=== PATIENT | female | born 1980 | race Caucasian/White ===

== ENCOUNTER 2017-12-22 10:49 | Observation (INO) | payer MEDICAID ==
--- NOTE | 2017-12-22 11:34 | ED ---
Abdominal Pain/Female - HPI Summary HPI Summary: This is scribe Issa Attebery documenting for attending Babak Kendrick MD. Pt is a 37 y/o F c/o abd pain located in the RLQ onset ~2 days ago. Pain is described as sharp/stabbing and is rated a 7/10, per triage. Assoc. Sx: Abd pain , dysuria, nausea, vomiting. Denies: fever. She reports that the pain is worsened by walking and when she is sitting up the pain spreads up into her epigastric region. LNMP: ~1 week ago. PSHx: Reviewed and N/C. I, Dr. Kendrick, personally performed the services described in this documentation as scribed in my presence and it is both accurate and complete. - History of Current Complaint Chief Complaint: EDAbdPain Stated Complaint: ABD PAIN Time Seen by Provider: 12/22/17 11:29 Hx Obtained From: Patient Onset/Duration: Gradual Onset, Lasting Days, Still Present Timing: Constant Severity Currently: Moderate Pain Intensity: 7 Pain Scale Used: 0-10 Numeric Location: Discrete At: RLQ Character: Sharp Aggravating Factor(s): Movement Associated Signs and Symptoms: Positive: Nausea, Vomiting. Negative: Fever Allergies/Adverse Reactions: Allergies Allergy/AdvReac Type Severity Reaction Status Date / Time quinoa Allergy GI Upset Uncoded 12/22/17 11:08 PMH/Surg Hx/FS Hx/Imm Hx Endocrine/Hematology History: Denies: Hx Diabetes Cardiovascular History: Denies: Hx Coronary Artery Disease, Hx Hypertension Infectious Disease History: No Infectious Disease History: Denies: Traveled Outside the [place] in Last 30 Days - Family History Known Family History: Negative: Cardiac Disease, Hypertension, Diabetes - Social History Occupation: Unemployed Lives: With Family Alcohol Use: Occasionally Hx Substance Use: No Substance Use Type: Reports: None Hx Tobacco Use: No Smoking Status (MU): Never Smoked Tobacco Review of Systems Negative: Fever Positive: Abdominal Pain, Vomiting, Nausea Positive: dysuria All Other Systems Reviewed And Are Negative: Yes Physical Exam - Summary Physical Exam Summary: Appearance: Well appearing, no pain distress Skin: warm, dry, reflects adequate perfusion Head/face: normal Eyes: EOMI, NETO ENT: normal Neck: supple, non-tender Respiratory: CTA, breath sounds present Cardiovascular: RRR, pulses symmetrical Abdomen: Moderate R pelvis tenderness, HATL nml. Bowel Sounds: present Musculoskeletal: normal, strength/ROM intact Neuro: normal, sensory motor intact, A&Ox3 Triage Information Reviewed: Yes Vital Signs On Initial Exam: Initial Vitals Temp Pulse Resp BP Pulse Ox 98.2 F 91 16 119/64 99 12/22/17 11:09 12/22/17 11:09 12/22/17 11:09 12/22/17 11:09 12/22/17 11:09 Vital Signs Reviewed: Yes Diagnostics - Vital Signs Vital Signs Temp Pulse Resp BP Pulse Ox 12/22/17 11:09 98.2 F 91 16 119/64 99 - Laboratory Result Diagrams: 12/22/17 11:45 12/22/17 11:45 Lab Statement: Any lab studies that have been ordered have been reviewed, and results considered in the medical decision making process. - Ultrasound No standard instances Ultrasound Interpretation: Positive (See Comments) - IMPRESSION: FINDINGS CONSISTENT WITH ACUTE APPENDICITIS. THERE IS NO LOCULATED FLUID COLLECTION TO SUGGEST ABSCESS. Ultrasound Interpretation Completed By: Radiologist - Report has been reviewed by provider and radiologist. Abdominal Pain Fem Course/Dx - Course Course Of Treatment: Patient with right pelvic/right lower quadrant is comfort and elevated WBC. Her appendix is grossly dilated on ultrasound consistent with acute appendicitis. IV antibiotics were given in the surgeon was contacted. She will take the patient to the operating room. - Diagnoses Differential Diagnosis: Positive: Appendicitis, Ovarian Cyst, , Renal Colic, Urinary Tract Infection Provider Diagnoses: Acute appendicitis - Provider Notifications Discussed Care Of Patient With: Kavya Perez Time Discussed With Above Provider: 13:15 Instructed by Provider To: Other - Provider discussed care of pt and she will be admitted for surgery. Discharge - Sign-Out/Discharge Documenting (check all that apply): Patient Departure - Discharge Plan Condition: Fair Disposition: ADMITTED TO [facility] Referrals: No Primary Care Phys,NOPCP [Primary Care Provider] - - Billing Disposition and Condition Condition: FAIR Disposition: Admitted to [facility]
[2017-12-22] MEDS ORDERED: Ondansetron INJ* 2 MG/ML VIAL IV ONE (11:58)
[2017-12-22] MEDS ORDERED: Ketorolac INJ* 30 MG/ML 1 ML VIAL IV PUSH ONE (11:58)
[2017-12-22 11:59] LABS: ABS Basophils 0 10^3/ul (0-0.2); ABS Eosinophils 0 10^3/ul (0-0.6); ABS Lymphocytes 1.2 10^3/ul (1.0-4.8); ABS Monocytes 0.9 10^3/ul (0-0.8); ABS Neutrophils 13.7 10^3/ul (1.5-7.7); ABS Nucleated RBC 0 10^3/ul; Eosinophil % 0 % (0-6); Hematocrit 37 % (35-47); Hemoglobin 12.3 g/dl (12.0-16.0); Lymphocyte % 7.9 % (25-47); Mean Corpuscular HGB Conc 34 g/dl (31-36); Mean Corpuscular Hemoglobin 31 pg (27-31); Mean Corpuscular Volume 91 fL (80-97); Mean Platelet Volume 7.7 um3 (7.4-10.4); Nucleated Red Blood Cells % 0; Platelet Count 236 10^3/ul (150-450); Red Blood Count 4.01 10^6/ul (4.00-5.40); Red Cell Distribution Width 14 % (10.5-15); White Blood Count 15.8 10^3/ul (3.5-10.8)
[2017-12-22 12:15] LABS: EGFR Non-African American 98.5 (>60)
[2017-12-22 12:25] LABS: Urine Appearance Clear; Urine Blood 2+ (Negative); Urine Color Yellow; Urine Ketones 1+ (Negative); Urine Protein Negative (Negative); Urine Red Blood Cell 2+(6-10/hpf) (Absent); Urine Specific Gravity 1.009 (1.010-1.030); Urine Urobilinogen Negative (Negative); Urine White Blood Cell Absent (Absent)
[2017-12-22] MEDS ORDERED: Piperacillin/Tazobac ADVAN(*) 3.375 GM in NS 0.9% 100 ML* 100 ML IVPB ONE (12:58)
--- NOTE | 2017-12-22 13:04 | RAD ---
HISTORY: R pelvic/RLQ pain COMPARISONS: None TECHNIQUE: Multiple transverse and longitudinal ultrasound images were obtained of the right lower quadrant using grayscale and color Doppler imaging. FINDINGS: The appendix is identified. The appendix is dilated measuring up to 0.8 cm. An appendicolith is noted. There is increased echogenicity of the periappendiceal fat. The appendix is noncompressible, with pain over the appendix. IMPRESSION: FINDINGS CONSISTENT WITH ACUTE APPENDICITIS. THERE IS NO LOCULATED FLUID COLLECTION TO SUGGEST ABSCESS.
[2017-12-22] MEDS ORDERED: Morphine INJ* 2 MG/ML 1 ML SYRINGE (TWO MG - NEW SYRINGE VERSION) IV ONE (13:38)
--- NOTE | 2017-12-22 14:25 | HP ---
H&P (Free Text) History and Physical: Surgery H & P Asked by ER to evaluate pt with abdominal pain and a sono c/w appendicitis. Ms Pereira is a 37 y.o. female who reports she began to feel abdominal pain last night suddenly. She describes it as initially a generalized ache. She then had an episode of vomiting and then there was an upper abdominal cramping as well. She had a difficult time sleeping due to pain, but in the morning when the pain was a little better, she also noticed that it was more noticeable in the RLQ. She had an episode of soft stool, but no diarrhea or constipation. She noticed that trying to move bowels or urinate aggravated the pain. She is not hungry, she denies vaginal d/c and LMP was last week. Today when the pain persisted she decided to "get some help with it" and came to the ER. Here she was found to have elevated WBC and a sono which showed a thickened appx. PMHx: denies Meds: Vit C NKDA SH: neg. tob; social EtOH, neg. IVDA ROS: neg. FH: a cousin had appendicitis, grandmother had a lymphosarcoma at 94. PE: general: WDWN female in NAD Vital Signs 12/22/17 11:09 Temperature 98.2 F Pulse Rate 91 Respiratory 16 Rate Blood Pressure 119/64 (mmHg) O2 Sat by Pulse 99 Oximetry HEENT: neg. cervical adenopathy, dry oral mucosa, neg. scleral icterus lungs: clear to ausc. heart: reg. abd: good BS, soft, tender in McBurney's point and right suprapubic area, no guarding or rebound. ext: neg cyanosis, edema, easily palp DP pulses bilaterally. Laboratory Results - last 24 hr 12/22/17 12/22/17 12/22/17 11:45 11:45 11:45 WBC 15.8 H RBC 4.01 Hgb 12.3 Hct 37 MCV 91 MCH 31 MCHC 34 RDW 14 Plt Count 236 MPV 7.7 Neut % (Auto) 86.6 H Lymph % (Auto) 7.9 L [place] % (Auto) 5.4 Eos % (Auto) 0 Baso % (Auto) 0.1 Absolute Neuts (auto) 13.7 H Absolute Lymphs (auto) 1.2 Absolute Monos (auto) 0.9 H Absolute Eos (auto) 0 Absolute Basos (auto) 0 Absolute Nucleated RBC 0 Nucleated RBC % 0 Sodium 134 L Potassium 3.5 Chloride 100 L Carbon Dioxide 26 Anion Gap 8 BUN 8 Creatinine 0.68 Est GFR ( Amer) 119.1 Est GFR (Non-Af Amer) 98.5 BUN/Creatinine Ratio 11.8 Glucose 110 H Lactic Acid 1.0 Calcium 9.3 Total Bilirubin 0.70 AST 16 ALT 15 Alkaline Phosphatase 37 C-Reactive Protein 53.20 H Total Protein 7.2 Albumin 4.5 Globulin 2.7 Albumin/Globulin Ratio 1.7 Lipase 25 Beta HCG, Quant < 0.60 Urine Color Urine Appearance Urine pH Ur Specific [place] Urine Protein Urine Ketones Urine Blood Urine Nitrate Urine Bilirubin Urine Urobilinogen Ur Leukocyte Esterase Urine WBC (Auto) Urine RBC (Auto) Ur Squamous Epith Cells Urine Bacteria Urine Glucose 12/22/17 12:14 WBC RBC Hgb Hct MCV MCH MCHC RDW Plt Count MPV Neut % (Auto) Lymph % (Auto) [place] % (Auto) Eos % (Auto) Baso % (Auto) Absolute Neuts (auto) Absolute Lymphs (auto) Absolute Monos (auto) Absolute Eos (auto) Absolute Basos (auto) Absolute Nucleated RBC Nucleated RBC % Sodium Potassium Chloride Carbon Dioxide Anion Gap BUN Creatinine Est GFR ( Amer) Est GFR (Non-Af Amer) BUN/Creatinine Ratio Glucose Lactic Acid Calcium Total Bilirubin AST ALT Alkaline Phosphatase C-Reactive Protein Total Protein Albumin Globulin Albumin/Globulin Ratio Lipase Beta HCG, Quant Urine Color Yellow Urine Appearance Clear Urine pH 6.0 Ur Specific [place] 1.009 L Urine Protein Negative Urine Ketones 1+ A Urine Blood 2+ A Urine Nitrate Negative Urine Bilirubin Negative Urine Urobilinogen Negative Ur Leukocyte Esterase Negative Urine WBC (Auto) Absent Urine RBC (Auto) 2+(6-10/hpf) A Ur Squamous Epith Cells Present A Urine Bacteria Absent Urine Glucose Negative A/P: Probable appendicitis. Will proceed to OR for laparoscopic appendectomy. I have explained to the pt. the nature of surgery, its risks, benefits, and alternatives. She understands and agrees to proceed. Robbie
[2017-12-22] MEDS ORDERED: fentaNYL* 50 MCG/ML 2 ML VIAL (100 MCG VIAL) ONE (14:52)
[2017-12-22] MEDS ORDERED: Rocuronium* 10 MG/ML VIAL ONE (14:52)
[2017-12-22] MEDS ORDERED: Midazolam* 1 MG/ML 2 ML VIAL (2 MG) ONE (14:52)
[2017-12-22] MEDS ORDERED: Desflurane* 240 ML INH ONE (15:01)
[2017-12-22] MEDS ORDERED: HYDROcodone/ACETAMIN 5-325 MG* 1 TAB PO PRN (15:06)
[2017-12-22] MEDS ORDERED: Acetaminophen TAB* 325 MG PO PRN (15:06)
[2017-12-22] MEDS ORDERED: fentaNYL* 50 MCG/ML 2 ML VIAL (100 MCG VIAL) IV PRN (15:06)
[2017-12-22] MEDS ORDERED: Ondansetron INJ* 2 MG/ML VIAL IV PRN ×2 (15:06→16:42)
[2017-12-22] MEDS ORDERED: DiMENhydriNATE IV* 50 MG/ML VIAL IV PUSH PRN (15:06)
[2017-12-22] MEDS ORDERED: Naloxone* 0.4 MG/ML 1 ML VIAL IV PRN (15:06)
[2017-12-22] MEDS ORDERED: Morphine INJ* 2 MG/ML 1 ML SYRINGE (TWO MG - NEW SYRINGE VERSION) IV PRN (15:06)
[2017-12-22] MEDS ORDERED: ROPIVACAINE 5 MG/ML 30 ML BTL (0.5%) ONE (15:13)
[2017-12-22] MEDS ORDERED: Dexamethasone IV* 4 MG/ML 1 ML (4 MG) ONE (16:02)
[2017-12-22] MEDS ORDERED: Ondansetron INJ* 2 MG/ML VIAL ONE (16:02)
[2017-12-22] MEDS ORDERED: Propofol* 10 MG/ML 20 ML BTL IV PUSH ONE (16:02)
[2017-12-22] MEDS ORDERED: Lidocaine 2% PF * 5 ML VIAL ONE (16:02)
[2017-12-22] MEDS ORDERED: Sugammadex * 200 MG/2 ML VIAL IV PUSH ONE (16:22)
--- NOTE | 2017-12-22 16:39 | BRIEFOPN ---
Brief Operative Note - Surgery Procedures: 12/22/17 Op Note Pre-op dx: appendicitis Post-op dx: same Procedure: laparoscopic appendectomy Surgeon: Chris Asst: none Anesth: general EBL: 10 cc SCDs on during surgery Abx: given in ER Complications: none Pt. tolerated procedure well and was transferred to in a stable condition. CLFoster
[2017-12-22] MEDS ORDERED: oxyCODONE/Acetamin 5/325 MG* TAB PO PRN (16:42)
[2017-12-22] MEDS ORDERED: Ibuprofen TAB* 600 MG PO PRN (16:42)
[2017-12-22] MEDS ORDERED: Meperidine SYRINGE* 50 MG/ML IV ONE (16:47)
[2017-12-22] MEDS ORDERED: Meperidine Carpuject* 75 MG/ML CARPUJECT SYRINGE ONE (16:53)
[2017-12-22] MEDS ORDERED: Zosyn per Pharmacy* NOTE FOLLOW UP SCH (17:00)
--- NOTE | 2017-12-22 18:13 | OP ---
DATE OF OPERATION: 12/22/17 - ROOM #333 DATE OF : 84 SURGEON: Kavya Perez MD WILDLIFE POLICY PROFESSIONAL: There was no tv production assistant for this case. PRE-OP DIAGNOSIS: Appendicitis. POST-OP DIAGNOSIS: Appendicitis. OPERATIVE PROCEDURE: Laparoscopic appendectomy. INDICATIONS: The patient is a 37-year-old woman who presented with signs and symptoms consistent with appendicitis prompting the plan for surgical intervention. DESCRIPTION OF PROCEDURE: She was brought to the operating room, placed on the OR table in the supine position and given general anesthesia. The abdomen was then prepped and draped in the usual sterile fashion. After infiltrating with local anesthetic, an incision was made in the infraumbilical area. Subcutaneous tissue was divided bluntly. The fascia was grasped and incised and a 0 Vicryl stitch was placed on either side of the fascial incision. A trocar was inserted into the abdomen and the abdomen was insufflated. Then, under direct visualization, a suprapubic and a left flank port were placed after infiltrating with local anesthetic. The cecum was visualized and it was noted that appendix appeared to be adherent to the cecum wrapping around from inferiorly to superiorly along the lateral sidewall. The attachments to the lateral sidewall and to the cecum itself were taken down with a combination of blunt and electrocautery dissection. Once this freed up the appendix, its base was cleared and then Endo SANDY stapler was fired across the base of the appendix. Some further dissection freed up the mesoappendix so that an Endo SANDY stapler could be fired across that as well. The appendix was then placed in an Endo Catch bag and withdrawn from the abdomen through the infraumbilical port site. A brief inspection of the rest of the abdomen revealed no obvious abnormalities. The uterus and ovaries were seen and appeared normal. The liver and gallbladder were seen and appeared normal. The small and large intestine that were visualized appeared normal. There was a small amount of blood in the right lower quadrant. This was absorbed with a gauze pad that was passed into the abdomen and then removed. A small amount of serosanguineous fluid was in the pelvis. This was also absorbed by another gauze pad that was inserted into the abdomen and then removed. All ports were then withdrawn under direct visualization. The previously placed 0 Vicryl was used to close the fascia of the infraumbilical port site and 4-0 Monocryl was used to close the skin of all incisions. Steri-Strips and a dry sterile dressing were applied. All sponge and instrument counts were correct. The patient tolerated the procedure well and was transferred to Recovery in a stable condition. [id number]/[facility] #: [id number] [facility] CENTERMaria Ines
[2017-12-22] MEDS: oxyCODONE/Acetamin 5/325 MG* TAB PO PRN (19:22)
[2017-12-22] MEDS: ZOSYN 3.375 GM Q8H per EXTENDED INFUSION IVPB SCH ×2 (21:03)
[2017-12-23] MEDS: oxyCODONE/Acetamin 5/325 MG* TAB PO PRN ×4 (00:56→11:56)
[2017-12-23] MEDS: ZOSYN 3.375 GM Q8H per EXTENDED INFUSION IVPB SCH ×2 (04:08)
[2017-12-23 05:54] LABS: ABS Basophils 0 10^3/ul (0-0.2); ABS Eosinophils 0 10^3/ul (0-0.6); ABS Lymphocytes 1.3 10^3/ul (1.0-4.8); ABS Monocytes 0.6 10^3/ul (0-0.8); ABS Neutrophils 12.1 10^3/ul (1.5-7.7); ABS Nucleated RBC 0 10^3/ul; Eosinophil % 0 % (0-6); Hematocrit 32 % (35-47); Hemoglobin 10.9 g/dl (12.0-16.0); Lymphocyte % 9.3 % (25-47); Mean Corpuscular HGB Conc 34 g/dl (31-36); Mean Corpuscular Hemoglobin 31 pg (27-31); Mean Corpuscular Volume 92 fL (80-97); Mean Platelet Volume 8.1 um3 (7.4-10.4); Nucleated Red Blood Cells % 0; Platelet Count 199 10^3/ul (150-450); Red Cell Distribution Width 14 % (10.5-15); White Blood Count 14.1 10^3/ul (3.5-10.8)
--- NOTE | 2017-12-23 08:15 | PN ---
Progress Note - Progress Note Date of Service: 12/23/17 Note: Surgery Ms. Pereira feels much better. She has tolerated some food, she has ambulated, she has not had a BM. She has some right shoulder discomfort. Vital Signs 12/22/17 12/22/17 12/22/17 11:09 14:55 16:41 Temperature 98.2 F 97.8 F 97.5 F Pulse Rate 91 71 92 Respiratory 16 16 20 Rate Blood Pressure 119/64 113/71 99/63 (mmHg) O2 Sat by Pulse 99 100 96 Oximetry 12/22/17 12/22/17 12/22/17 16:45 16:50 16:55 Temperature Pulse Rate 85 85 66 Respiratory 22 26 22 Rate Blood Pressure 102/64 107/66 108/66 (mmHg) O2 Sat by Pulse 97 93 100 Oximetry 12/22/17 12/22/17 12/22/17 16:58 17:00 17:15 Temperature Pulse Rate 95 58 Respiratory 18 21 22 Rate Blood Pressure 105/71 101/61 (mmHg) O2 Sat by Pulse 100 100 Oximetry 12/22/17 12/22/17 12/22/17 17:30 18:00 19:22 Temperature 98.3 F Pulse Rate 58 61 Respiratory 12 18 16 Rate Blood Pressure 108/68 95/60 (mmHg) O2 Sat by Pulse 100 99 Oximetry 12/22/17 12/22/17 12/22/17 19:25 20:07 21:10 Temperature 98.3 F 97.7 F Pulse Rate 54 58 Respiratory 14 18 18 Rate Blood Pressure 97/59 105/51 (mmHg) O2 Sat by Pulse 99 99 Oximetry 12/22/17 12/22/17 12/23/17 22:11 23:00 00:09 Temperature 97.9 F Pulse Rate 53 Respiratory 18 16 Rate Blood Pressure 91/53 (mmHg) O2 Sat by Pulse 98 99 Oximetry 12/23/17 12/23/17 12/23/17 00:19 00:56 04:03 Temperature 98.6 F 98.6 F Pulse Rate 57 68 Respiratory 16 16 16 Rate Blood Pressure 93/53 94/51 (mmHg) O2 Sat by Pulse 98 98 Oximetry 12/23/17 12/23/17 12/23/17 04:18 04:19 07:25 Temperature 97.1 F Pulse Rate 49 Respiratory 18 18 16 Rate Blood Pressure 97/62 (mmHg) O2 Sat by Pulse 98 Oximetry Abd: good BS, soft, mildly tender in RLQ. Incisions: Dressings intact. Intake & Output 12/22/17 12/23/17 12/23/17 22:59 06:59 14:59 Intake Total 720 964 Output Total 900 850 500 Balance -180 114 -500 Weight 140 lb Intake: IV Fluids 10 NS (0.9%) 10 IVPB 104 ABX - ZOSYN 104 Oral 720 850 Output: Urine 900 850 500 Laboratory Results - last 24 hr 12/22/17 12/22/17 12/22/17 11:45 11:45 11:45 WBC 15.8 H RBC 4.01 Hgb 12.3 Hct 37 MCV 91 MCH 31 MCHC 34 RDW 14 Plt Count 236 MPV 7.7 Neut % (Auto) 86.6 H Lymph % (Auto) 7.9 L [place] % (Auto) 5.4 Eos % (Auto) 0 Baso % (Auto) 0.1 Absolute Neuts (auto) 13.7 H Absolute Lymphs (auto) 1.2 Absolute Monos (auto) 0.9 H Absolute Eos (auto) 0 Absolute Basos (auto) 0 Absolute Nucleated RBC 0 Nucleated RBC % 0 Sodium 134 L Potassium 3.5 Chloride 100 L Carbon Dioxide 26 Anion Gap 8 BUN 8 Creatinine 0.68 Est GFR ( Amer) 119.1 Est GFR (Non-Af Amer) 98.5 BUN/Creatinine Ratio 11.8 Glucose 110 H Lactic Acid 1.0 Calcium 9.3 Total Bilirubin 0.70 AST 16 ALT 15 Alkaline Phosphatase 37 C-Reactive Protein 53.20 H Total Protein 7.2 Albumin 4.5 Globulin 2.7 Albumin/Globulin Ratio 1.7 Lipase 25 Beta HCG, Quant < 0.60 Urine Color Urine Appearance Urine pH Ur Specific [place] Urine Protein Urine Ketones Urine Blood Urine Nitrate Urine Bilirubin Urine Urobilinogen Ur Leukocyte Esterase Urine WBC (Auto) Urine RBC (Auto) Ur Squamous Epith Cells Urine Bacteria Urine Glucose 12/22/17 12/22/17 12/23/17 12:14 18:03 05:30 WBC 14.1 H RBC 3.50 L Hgb 10.9 L Hct 32 L MCV 92 MCH 31 MCHC 34 RDW 14 Plt Count 199 MPV 8.1 Neut % (Auto) 86.1 H Lymph % (Auto) 9.3 L [place] % (Auto) 4.5 Eos % (Auto) 0 Baso % (Auto) 0.1 Absolute Neuts (auto) 12.1 H Absolute Lymphs (auto) 1.3 Absolute Monos (auto) 0.6 Absolute Eos (auto) 0 Absolute Basos (auto) 0 Absolute Nucleated RBC 0 Nucleated RBC % 0 Sodium Potassium Chloride Carbon Dioxide Anion Gap BUN Creatinine Est GFR ( Amer) Est GFR (Non-Af Amer) BUN/Creatinine Ratio Glucose Lactic Acid 0.9 Calcium Total Bilirubin AST ALT Alkaline Phosphatase C-Reactive Protein Total Protein Albumin Globulin Albumin/Globulin Ratio Lipase Beta HCG, Quant Urine Color Yellow Urine Appearance Clear Urine pH 6.0 Ur Specific [place] 1.009 L Urine Protein Negative Urine Ketones 1+ A Urine Blood 2+ A Urine Nitrate Negative Urine Bilirubin Negative Urine Urobilinogen Negative Ur Leukocyte Esterase Negative Urine WBC (Auto) Absent Urine RBC (Auto) 2+(6-10/hpf) A Ur Squamous Epith Cells Present A Urine Bacteria Absent Urine Glucose Negative A/P: POD#1 s/p lap appy. Can go home after noon dose of zosyn. CLFoster
[2017-12-23 11:38] VITALS: BP 90/48
[2017-12-23] MEDS ORDERED: NS 0.9% 100 ML* 100 ML ONE (11:49)
[2017-12-23] MEDS ORDERED: ZOSYN 3.375 GM Q6H IVPB SCH ×2 (12:00)
== END 2017-12-23 13:15 | disposition home or self-care (01) ==
LOC: ED 10:49 → OR 14:36 → SSU 16:39
PROVIDERS: ADMIT Surgery; ATTEND Surgery
DX: K37 Unspecified appendicitis (principal); R11.2 Nausea with vomiting, unspecified; R30.0 Dysuria
CPT/HCPCS: 36415; 76705; 80053; 81003; 81015; 83605; 83690; 84702; 85025; 86140; 88304; 96374; 96375; 99283; A9270-GY; G0378; J1100; J1885; J2175; J2250; J2405; J2543; J2704; J2795; J3010